=== PATIENT | female | born 1985 | race Caucasian/White ===

== ENCOUNTER 2024-10-11 23:26 | Outpatient (CLI) | payer OTHER, SELFPAY ==
[2024-10-11 23:49] VITALS: BP 118/79; PULSE 92; RESP 16; TEMP 37.2
[2024-10-12 00:05] LABS: Appearance Urine Clear (Clear); Bilirubin Urine Negative (Negative); Blood Urine Negative (Negative); Color Urine Yellow (Yellow); Glucose Urine Negative (Negative); Ketones Urine Negative (Negative); Leukocyte Esterase Urine Negative (Negative); Nitrite Urine Negative (Negative); Protein Urine Negative (Negative); Urobilinogen Urine 0.2 (0.2-1.0); pH Urine 6.5 (5.0-8.5)
[2024-10-12 00:17] LABS: Amphetamine Screen Urine Negative (Negative); Barbiturate Screen Urine Negative (Negative); Benzodiazepines Screen Urine Negative (Negative); Cannabinoid Screen Urine Negative (Negative); Cocaine Screen Urine Negative (Negative); Methadone Screen Urine Negative (Negative); Methamphetamines Screen Urine Negative (Negative); Opiate Screen Urine Negative (Negative); Oxycodone Screen Urine Negative (Negative); Phencyclidine Screen Urine Negative (Negative); Tricyclic Antidepressant Urine Negative (Negative)
[2024-10-12] MEDS: ACETAMINOPHEN 500 MG TABLET 1000 MG PO (01:02)
[2024-10-12] MEDS: hydrOXYzine pamoate 25 MG CAPSULE 100 MG PO (01:02)
--- NOTE | 2024-10-14 17:55 | PC.OBNST ---
NST Note NST Note Start: 10/11/24 23:29 Freq: ONCE Status: Discharge Protocol: Document 10/12/24 01:18 JULIANNA (Rec: 10/12/24 01:20 JULIANNA [id number]) NST Note 1 Para (# of births) 0 EDC 10/08/24 Gestational Age In Weeks & Days 40 Weeks & 4 Days Patient Presented with Complaint(s) of Contractions/cramping Reactive Yes Appropriate for Gestational Age Yes RN Dario Asher RN Date 10/12/24 Reactive Yes Appropriate for Gestational Age Yes SMOOTH Dutton Date 10/12/24 OB NST charge Yes Complete NST Note via Write Note Yes The provider's electronic signature indicates the NST is reactive/appropriate for gestational age. *Note to provider: If an addendum is required, open the patient's chart and click on the note under the Nurse/Allied Health tab.
== END 2024-10-12 01:20 | disposition home or self-care (01) ==
LOC: OB OUT 23:26 → OB 23:26
PROVIDERS: PCP Family Medicine; Visit Provider Family Medicine
DX: O47.1 False labor at or after 37 completed weeks of gestation (principal); Z3A.40 40 weeks gestation of pregnancy
CPT/HCPCS: 59025; 80306; 81003; G0463; A9270

== ENCOUNTER 2024-10-12 06:45 | Inpatient (IN) | payer OTHER, SELFPAY ==
[2024-10-12] VITALS (112 sets, daily range): BP systolic 77–127; BP diastolic 40–69; PULSE 74–116; RESP 16–18; TEMP 36.9–37.3; O2SAT 92–98; BMI 37.1
[2024-10-12 06:55] LABS: Amnisure Rom* Negative
[2024-10-12 07:07] LABS: Basophils Percent Auto 0.1 % (0.0-3.0); Eosinophils Percent Auto 0.1 % (0.0-7.0); Hematocrit 36.2 % (33.0-51.0); Hemoglobin* 12.1 gm/dL (12.0-16.0); Lymphocytes Percent Auto 6.9 % (20-44); Mean Corpuscular HGB Conc 33 gm/dL (32-36); Mean Corpuscular Hemoglobin 29 pg (26-34); Mean Corpuscular Volume 86 fL (80-100); Monocytes Percent Auto 3.9 % (0.0-11.0); Platelet Count* 238 K/uL (140-440); Red Blood Count 4.21 m/uL (4.00-5.20); White Blood Count* 14.69 K/uL (4.50-11.00)
[2024-10-12 07:11] LABS: Slide Review Reflex No
[2024-10-12] MEDS: LACTATED RINGERS 1000 ML 1,000 ML 900 ML IV ×2 (08:02→09:56)
[2024-10-12] MEDS: BUPIVACAINE 0.25% PF 10 ML 10 ML ML EPIDURAL (09:02)
[2024-10-12] MEDS: ROPIVACAINE 0.2% 100 ml 100 ML 12 MG EPIDURAL ×2 (09:02→18:45)
[2024-10-12] MEDS: PHENYLEPHRINE 100 MCG/ML SYRINGE IVP ×5 (09:55→15:05)
[2024-10-12] MEDS: ePHEDrine sulfate 5 MG/ML inj 10 MG IVP ×4 (09:59→13:11)
--- NOTE | 2024-10-12 10:01 | P.ANBPRC_ITS ---
PFSH PFSH Social History What is your current living situation?: I presently have a place to live Problems where you live: no known problems In the past 12 months, utilities in danger of being shut off: no In past 12 months, lack of transportation kept you from medical appts, meetings, work, or getting things needed for daily living: no In the past 12 mos, have been you worried that your food would run out before you had money to buy more?: never true In the past 12 mos, the food you bought just didn't last and you didn't have money to buy more?: never true Smoking Status: Former smoker How often does anyone, including family, friends and others, physically hurt you : never How often does anyone, including family, friends and others, insult or talk down to you: never How often does anyone, including family, friends and others, threaten you with harm: never How often does anyone, including family, friends and others, scream or curse at you: never Meds Home Medications and Allergies Home Medications ?Medication ?Instructions ?Recorded ?Confirmed ?Type buprenorphine 2 mg-naloxone 0.5 mg 1 film buccal DAILY 10/11/24 10/12/24 History sublingual film (Suboxone) escitalopram oxalate 20 mg tablet 20 mg PO DAILY 10/11/24 10/12/24 History (Lexapro) vits no.130-ferrous fum 1 tab PO DAILY 10/11/24 10/12/24 History 27 mg iron-folic acid 800 mcg tablet ( Vitamin) Allergies Allergy/AdvReac Type Severity Reaction Status Date / Time No Known Drug Allergies Allergy Verified 10/12/24 06:26 Results Labs Labs: Laboratory Results - last 24 hr 10/12/24 10/12/24 06:30 06:58 WBC 14.69 H RBC 4.21 Hgb 12.1 Hct 36.2 MCV 86 MCH 29 MCHC 33 RDW Coeff of Dennis 14.0 Plt Count 238 Neut % (Auto) 88.0 H Lymph % (Auto) 6.9 L [place] % (Auto) 3.9 Eos % (Auto) 0.1 Baso % (Auto) 0.1 Neut # (Auto) 12.90 H Lymph # (Auto) 1.00 [place] # (Auto) 0.60 Eos # (Auto) 0.00 Baso # (Auto) 0.00 Abs Immat Gran (auto) 0.10 Imm/Tot Granulo (auto) 1.0 Membrane Rupture Negative Blood Type A Positive Antibody Screen NEGATIVE Vital Signs Vital Signs: Last Vital Signs Temp 99.2 F 10/12/24 08:26 Pulse 74 10/12/24 09:58 Resp 18 10/12/24 08:26 BP 86/52 L 10/12/24 09:58 Pulse Ox 98 10/12/24 08:56 Weight: 104.326 kg Height: 167.64 cm Anesthesia Procedures Epidural Insertion Patient Location: OB Start Time: :00 Stop Time: 09:45 Start Date: 10/12/24 Stop Date: 10/12/24 Reason for Block: procedure for pain Patient Position: sitting Performed By: Robinson Goodman Preanesthetic Checklist: IV checked, risks and benefits discussed, surgical c onsent, monitors and equipment checked, pre-op evaluation, timeout performed and anesthesia consent Prep: chlorhexidine gluconate Monitoring: blood pressure monitoring, continuous pulse oximetry and heart rate Approach: midline Vertebral Space: lumbar (1-5) Epidural Technique: BENNY saline Needle Type: Tuohy needle Injection Technique: continuous catheter Needle gauge: 17 Needle Length (cm): 10 cm Needle Insertion Depth (cm): 6 Catheter Gauge: 19 Catheter Type: multi-orifice Catheter at skin depth (cm): 12 Test Dose Result: negative and lidocaine 1.5% with epinephrine 1 to 200,000
--- NOTE | 2024-10-12 12:41 | PM.OBHPLI ---
OB - H&P: HPI Labor/Induction History of Present Illness Time Seen by Provider: 12:41 Date Seen: 10/12/24 Chief Complaint: The patient is a 38 year old 1 para 0 at 40+4 weeks gestation by LMP, who presents with active labor. Chief complaint: Maternity : 1 Para: 0 Narrative: Sheba Ravi is a 38 year old female at 40+4 weeks by LMP c/w 9 week US. 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 Her drug use is remote, sober since 2019. After discussions with PCP, addiction medicine provider, and M, she elected to taper and discontinue suboxone prior to delivery. Last dose (0.5 mg) was 09/20. Patient denies and there is no clinical concern for elicit drug use during . She had MFM and cardiology co-consult for hx of SVT and endocarditis. She had normal EKG and echocardiogram, cleared to deliver in [place]. Presented with regular painful uterine contractions starting evening of 10/11. She was evaluated overnight; discharged home with no cervical change. 4/60/-2 on admission. FHT category I. Thought she may have had SROM, but amnisure was negative. She requested epidural, and this was placed at 0900. Since placement, patient has been intermittently hypotensive, and required multiple doses of phenylephrine. Episodes tend to occur when patient is on her back. FHT with intermittent mild variable decelerations and two deeper prolonged decelerations, both coinciding with cervical checks in supine position. Cervix most recently 5/90/-1 with bulging bag at 1213. Subsequent AROM for bloody fluid. Shortly thereafter, patient noted feeling woozy and nauseous. BP 77/40 and deep deceleration to the 80s lasting 4 minutes. Recovered with repositioning to left side, phenylephrine, and IVF bolus. FSE placed. No cord palpated with cervical check. 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 Labs Blood type: A (+) positive Rubella: immune RPR/VDLR: nonreactive GBS status: negative HBsAG: negative Narrative: HIV - Hep C - GC/chlam - GCT 122 Review of Systems Status of ROS: Reports: 10 or more systems reviewed and unremarkable except as noted in History and below Meds Home Medications and Allergies Home Medications ?Medication ?Instructions ?Recorded ?Confirmed ?Type buprenorphine 2 mg-naloxone 0.5 mg 1 film buccal DAILY 10/11/24 10/12/24 History sublingual film (Suboxone) escitalopram oxalate 20 mg tablet 20 mg PO DAILY 10/11/24 10/12/24 History (Lexapro) vits no.130-ferrous fum 1 tab PO DAILY 10/11/24 10/12/24 History 27 mg iron-folic acid 800 mcg tablet ( Vitamin) Allergies Allergy/AdvReac Type Severity Reaction Status Date / Time No Known Drug Allergies Allergy Verified 10/12/24 06:26 OB - H&P: Exam Physical Exam: Vital signs: Temp Pulse Resp BP Pulse Ox 98.6 F 92 16 90/49 L 96 10/12/24 12:35 10/12/24 12:35 10/12/24 12:35 10/12/24 12:35 10/12/24 12:38 Narrative: General appearance: Well-appearing adult female. Alert, oriented and appropriate. Lying on side in hospital bed. HEENT: EOMI, no conjunctival injection or discharge. MMM. Neck: Supple. CV: RRR, no rubs, murmurs or extra heart sounds. Pulm: CTAB, no wheezes, rales or rhonchi. Abdomen: Gravid MSK: Moving all extremities. Ext: Warm and well-perfused. No LE edema. Skin: No rashes appreciated over exposed skin. Neuro: Grossly normal strength and sensation. No focal deficits. Psych: Normal affect. OB - Results Labs Labs: Short CBC 10/12/24 Range/Units 06:58 WBC 14.69 H (4.50-11.00) K/uL Hgb 12.1 (12.0-16.0) gm/dL Hct 36.2 (33.0-51.0) % Plt Count 238 (140-440) K/uL OB - Problem Based A/P Additional Plan (1) Term : Problem details: , admitted 40+4 weeks in active labor. Epidural in place. AROM for bloody fluid. Status: Acute Plan: - FHT currently category II with occasional mild variable decelerations - FSE in place - Per anesthesia, epidural stopped, coming to bedside. Phenylephrine as needed. - Continue to closely monitor maternal BP and status - GBS negative - Anticipate vaginal delivery (2) complicated by Suboxone maintenance, antepartum: Problem details: Per patient preference, suboxone tapered and stopped. Last dose 09/20. Do not anticipate abstinence syndrome Status: Acute (3) S/P ablation operation for arrhythmia: Problem details: Normal EKG. Per cardiology and MFM at [facility], no special care Status: Acute (4) History of endocarditis: Problem details: Normal echocardiogram. Per cardiology and MFM at [facility], no special care Status: Acute
[2024-10-12] MEDS: LACTATED RINGERS 1000 ML 1,000 ML 125 ML IV ×2 (13:13→22:30)
--- NOTE | 2024-10-12 16:54 | PM.OBPNL ---
Subjective Time Seen by Provider: 16:55 Date Seen: 10/12/24 Narrative: Patient feeling a little more uncomfortable after holding epidural d/t hypotension. Rating pain 4/10. Anesthesia has been in to evaluate. Epidural restarted and patient also has the ability to bolus. BPs have been more stable with holding the epidural. Cervix 5/90/0 on recheck. FHT category II with occasional variable decelerations. Objective Vital Signs: Last Vital Signs Temp 99 F 10/12/24 16:39 Pulse 95 10/12/24 16:47 Resp 16 10/12/24 16:39 BP 93/52 L 10/12/24 16:47 Pulse Ox 97 10/12/24 13:33 Pelvic Exam Dilation (cm): 5 Effacement (%): 90 Station: 0 Contractions Monitor mode: External Contraction Frequency: Q2-3 mins Assessment Assessment: active labor Station: 0 Amniotic Membrane Status: AROM Status: Category ll Heart Rate Baseline: 155 Group Home Variability: Moderate (6-25) Monitor Accelerations: Present Monitor Decelerations: Variable Plan Plan: - Minimal cervical change since 1200 - Initiate IV pitocin. Titrate based on contraction pattern and MVUs - IUPC placed - Continue to monitor status closely - Continue to monitor blood pressure; hypotension currently stable, improved - If no significant cervical change with adequate IVUs, will involve PATTERN PERFORATING MACHINE OPERATOR to consider delivery
[2024-10-12] MEDS: ACETAMINOPHEN 500 MG TABLET 1000 MG PO (17:03)
[2024-10-12] MEDS: OXYTOCIN 30 unit/500 ML in NS 30 UNIT/500 ML BAG IVPB (17:24)
[2024-10-12] MEDS: LIDOCAINE 2% (PF) 5 ML VIAL EPIDURAL ×2 (18:31→21:47)
--- NOTE | 2024-10-12 19:53 | PM.OBPNL ---
Subjective Time Seen by Provider: 19:53 Date Seen: 10/12/24 Narrative: Called to the bedside to evaluate. Pitocin was started at 1730, got to 2, then discontinued at 1851 d/t recurrent decelerations and marked variability. OUTBOUND TELEMARKETING REPRESENTATIVE also rebolused epidural, patient now comfortable. Objective Vital Signs: Last Vital Signs Temp 99.2 F 10/12/24 18:37 Pulse 86 10/12/24 19:50 Resp 16 10/12/24 18:37 BP 112/68 10/12/24 19:50 Pulse Ox 97 10/12/24 13:33 Pelvic Exam Dilation (cm): 6.5 Effacement (%): 90 Station: 0 Contractions Monitor mode: External Contraction Frequency: q2 mins Contraction pattern: Regular Pitocin Rate (mU/min): 0 Assessment Assessment: active labor Station: 0 Amniotic Membrane Status: AROM Status: Category ll Heart Rate Baseline: 150 Detention Variability: Moderate (6-25) Monitor Accelerations: Present Monitor Decelerations: None Tracing Comments: Improved with pitocin off Plan Plan: - Made cervical change since the last check. However, intolerance of pitocin, even at a low rate. FHT now category I off pitocin. Current MVUs <200. Plan to recheck cervix in 1 hour. Will consider trial of restarting pitocin. If recurrence of recurrent decelerations, would recommend moving to delivery by section. Discussed with patient and she is agreeable. Dr. Lola pringle.
[2024-10-12] MEDS: LACTATED RINGERS 1000 ML 1,000 ML 500 ML IV (19:57)
[2024-10-12] MEDS: ONDANSETRON 2 MG/ML inj 4 MG IV (21:35)
[2024-10-12] MEDS: fentaNYL 100 MCG/2 ML inj EPIDURAL (21:47)
--- NOTE | 2024-10-12 22:28 | PM.OBCN1 ---
OB - CN: HPI Date of Consult Date Seen: 10/12/24 Patient: Car Patient Consult date: 10/12/24 Requesting Physician: Johnna Ruiz MD Primary Care Provider: Melissa Resendiz MD Consult Narrative Narrative: The patient is a 38 year old at 40 weeks, 4 days gestation that was [facility] 10[facility]24 for labor. She has had a prolonged labor with intermittent episodes of non-reassuring tracings; these have been recurrent variables or late decelerations per review of strip, but have generally resolved with cessation of oxytocin. She has an epidural for pain relief. She has just been found to be dilated to a cervical lip, but this was coupled with a series of prolonged decelerations; total time before recovery appears to have been around 22 minutes, with intermittent returns to baseline of 150 during this time. Decelerations had lukasz in 70s. There was discontinuous tracing during this time. Lie, baseline is recovered to 145, but variability is now minimal. Her is otherwise complicated by/notable for: 1. AMA 2. history of opioid dependence on suboxone maintenance therapy; she opted to discontinue this in early September. 3. MDD and GENNA on escitalopram 20 mg daily 4. history of SVT s/p ablation 5. History of infectious endocarditis related to IVDU. She has been abstinent from IV drugs since 2019. She was seen by both MFM at [facility] and cardiology during this . MFM did not recommend any endocarditis prophylaxis. Past surgical history: None History History 1 Elective abortions Para 0 Spontaneous abortions Hx # Term Pregnancies Ectopic pregnancies Hx # Pregnancies Multiple births Number of Living Children 0 Labs Blood type: A (+) positive Rubella: immune RPR/VDLR: nonreactive GBS status: negative HBsAG: negative OB Labs: Lab Assessment Start: 10/12/24 06:44 Freq: ONCE Status: Active Protocol: PC.OBGBS Activity Type Activity Date Activity User E-sign Co-sign Detail Recorded Client Recorded Date Recorded By Document 10/12/24 07:07 JULIANNA [id number] 10/12/24 07:16 JULIANNA 10/12/24 07:07 Lab Assessment GBS Status negative GBS Additional Criteria None No Treatment Needed OK Are Labs Available Yes Maternal Blood Type A Maternal RH Factor Positive Evaluate Maternal Rubella Immune Status Immune Hepatitis B Surface Antigen Negative Maternal HIV Status Negative Maternal Syphillis (RPR) Status Negative PFSH PFSH Social History What is your current living situation?: I presently have a place to live Problems where you live: no known problems In the past 12 months, utilities in danger of being shut off: no In past 12 months, lack of transportation kept you from medical appts, meetings, work, or getting things needed for daily living: no In the past 12 mos, have been you worried that your food would run out before you had money to buy more?: never true In the past 12 mos, the food you bought just didn't last and you didn't have money to buy more?: never true Smoking Status: Former smoker How often does anyone, including family, friends and others, physically hurt you: never How often does anyone, including family, friends and others, insult or talk down to you: never How often does anyone, including family, friends and others, threaten you with harm: never How often does anyone, including family, friends and others, scream or curse at you: never Meds Home Medications and Allergies Home Medications ?Medication ?Instructions ?Recorded ?Confirmed ?Type buprenorphine 2 mg-naloxone 0.5 mg 1 film buccal DAILY 10/11/24 10/12/24 History sublingual film (Suboxone) escitalopram oxalate 20 mg tablet 20 mg PO DAILY 10/11/24 10/12/24 History (Lexapro) vits no.130-ferrous fum 1 tab PO DAILY 10/11/24 10/12/24 History 27 mg iron-folic acid 800 mcg tablet ( Vitamin) Allergies Allergy/AdvReac Type Severity Reaction Status Date / Time No Known Drug Allergies Allergy Verified 10/12/24 06:26 OB - H&P: Exam Physical Exam: Vital signs: Temp Pulse Resp BP Pulse Ox 99.2 F 116 H 16 102/50 L 94 10/12/24 18:37 10/12/24 22:19 10/12/24 18:37 10/12/24 22:19 10/12/24 22:11 Narrative: Gen - currently on hands and knees in bed, accompanied by family OB - Results Labs Labs: Short CBC 10/12/24 Range/Units 06:58 WBC 14.69 H (4.50-11.00) K/uL Hgb 12.1 (12.0-16.0) gm/dL Hct 36.2 (33.0-51.0) % Plt Count 238 (140-440) K/uL OB - CN: A/P Assessment and Plan (1) Term : Problem details: , admitted 40+4 weeks in active labor. Epidural in place. AROM for bloody fluid. Status: Acute (2) complicated by Suboxone maintenance, antepartum: Problem details: Per patient preference, suboxone tapered and stopped. Last dose 09/20. Do not anticipate abstinence syndrome Status: Acute (3) S/P ablation operation for arrhythmia: Problem details: Normal EKG. Per cardiology and MFM at [facility], no special care Status: Acute (4) History of endocarditis: Problem details: Normal echocardiogram. Per cardiology and MFM at [facility], no special care Status: Acute Plan Given the length of the most recent decelerations and minimal variability, I now recommend for nonreassuring status. We discussed risks of procedure, including bleeding/hemorrhage, risk of transfusion, infection, uterine scarring, and impact on future pregnancies. Consent form was reviewed with and signed by patient. Cefazolin 2 g and azithromycin 500 mg for prophylaxis against infection. This will also serve for endocarditis prophylaxis.
[2024-10-12] MEDS: AZITHROMYCIN 500 MG in 0.9 % SODIUM CHLORIDE 250 ml 250 ML 255 MG IVPB (22:34)
--- NOTE | 2024-10-12 22:44 | P.OBPN_ITS ---
Subjective Time Seen by Provider: 22:46 Date Seen: 10/12/24 Narrative: Progressed to 8/90/+1 on cervical recheck. FHT category I. Resumed pitocin. Prolonged deceleration occurred at 2200. Cervical check posterior rim. Multiple attempts at repositioning. Pitocin stopped. Resolved only with hands and knees positioning. Objective Vital Signs: Last Vital Signs Temp 99.2 F 10/12/24 18:37 Pulse 101 H 10/12/24 22:34 Resp 16 10/12/24 18:37 BP 96/53 L 10/12/24 22:34 Pulse Ox 94 10/12/24 22:11 Pelvic Exam Dilation (cm): 9.5 Effacement (%): 90 Station: +1 Assessment Station: +1 Amniotic Membrane Status: AROM Status: Category ll Heart Rate Baseline: 150 Senior Care Variability: Minimal (3-5) Monitor Accelerations: Absent Monitor Decelerations: None Plan Plan: - Consulted OB director [employer] [facility], Dr. Davila, for delivery d/t non-reassuring status. See her note for further details.
[2024-10-12] MEDS: miSOPROStoL 800 MCG/4 TABLET PR (23:22)
[2024-10-13] VITALS (20 sets, daily range): BP systolic 90–123; BP diastolic 54–84; PULSE 77–129; RESP 12–18; TEMP 36.7–38.2; O2SAT 95–99
--- NOTE | 2024-10-13 00:12 | P.OBPRC_ITS ---
Procedure Date of procedure: 10/13/24 Pre-op diagnosis: 40 weeks, 4 days gestation Nonreassuring status during spontaneous labor Post-op diagnosis: same (Uterine atony) Procedure Done: Global Will [facility] bill your pro fee for this procedure?: Yes Blood Loss Measurement Type: QBL (4963) Bakri Used: No IV fluids (mL): 1,200 Urine Output Comment: blood tinged urine noted prior to initiation of Surgeon: Mar Davila MD Biofuels Operations Manager: Kerri Ovalle CRNA Anesthesia Type: Epidural Findings: 1. Female , thick meconium-stained fluid, cephalic 0P presentation, Apgars of 3, 7, and 7, weight pending at the time of this dictation 2. 2 cm subserosal fibroid on the posterior aspect of the uterus. Otherwise normal appearance to uterus, bilateral tubes and ovaries. Procedure Name: Primary low-transverse section with placement of B Rivera suture Procedure Description: PROCEDURE IN DETAIL: Patient was taken to the operating room with IV running. She received cefazolin in preoperative prophylaxis. Epidural anesthesia had previously been administered. Ingram catheter was previously inserted. heart rate at arrival to the OR was 140 beats per minute. She was prepped and draped in the usual sterile fashion. Anesthesia was tested and found to be adequate. A low-transverse skin incision was made with a scalpel and carried through to the underlying layer of fascia with the scalpel. The subcutaneous fat was dissected off the underlying fascia bluntly. The fascia was nicked in the midline with a scalpel, and this incision was extended laterally with scissors. The rectus muscles were in the midline. Peritoneum was identified and entered bluntly. Bovie was used to widen this opening. Ferdinand O retractor was inserted and tightened down, providing excellent visualization of the lower uterine segment. The bladder was noted to be quite distended, in the catheter was adjusted to promote drainage. The bladder reflection was found to be advanced along the lower uterine segment. A bladder flap was created with a combination of sharp and blunt dissection. Low-transverse uterine incision was made with a scalpel. Incision was widened bluntly. The infant's head was grasped through the hysterotomy and delivered with the help of fundal pressure. The remainder of the body delivered without incident. Cord was clamped and cut after 30 seconds. was handed off to attending nurses. The placenta was delivered manually after gentle traction on the cord did not result in delivery of placenta. There were trailing membranes that were then removed with a combination of dry laparotomy pads and ring forceps. The uterus was cleaned of all clots and debris with the dry lap pad. The hysterotomy was reapproximated with 0 Vicryl in a running, locked fashion. Second layer of the same suture was used in imbricating fashion to obtain hemostasis. Uterine atony was noted throughout this time. Uterus was exteriorized several times during the procedure. Uterine massage and the multiple uterotonics did not ultimately suffice to improve the tone. However, bleeding did stop after the imbrication of the hysterotomy. Of B Rivera suture was placed using #1 Chromic suture. The arms of this suture were adjusted medially on the top of the uterus to move them away from the adnexa and the proximal portions of the fallopian tubes. This stitch was able to bring the fundal Height to 2 cm below the umbilicus. The adnexa were examined and noted to be normal in appearance. The cul-de-sac was copiously irrigated given the presence of abundant meconium-stained fluid. Uterus was returned to the abdomen. The gutters were cleansed with dampened laparotomy sponge, removing any further clots and debris. The Ferdinand O retractor was removed. The hysterotomy was reexamined and found to be hemostatic. The peritoneum was reapproximated with 2 0 Vicryl in a running fashion. The rectus muscles were examined and found to be hemostatic. The fascia was reapproximated with 0 Vicryl in a running fashion. Subcutaneous fat was irrigated and Bovie used on oozing vessels. The subcutaneous fat was reapproximated with 2 0 plain gut suture in an interrupted fashion. The skin was closed with a subcuticular stitch of 4-0 Monocryl. Surgical glue was applied above this. Tap block was performed by Anesthesia. After this, examination of pad beneath patient did not show a large amount of bleeding. Fundal massage did not show an abnormal amount of lochia. Patient tolerated procedure with difficulty and was taken to recovery area in stable condition. Complications: Uterine atony, leading to intraoperative hemorrhage of 1071 mL, treated with IV oxytocin, 2 doses of intramuscular Hemabate, 2 doses of intramuscular Methergine, 800 mcg of rectal misoprostol, 1 g of IV tranexamic acid, and a B Rivera suture. Infant required PPV and CPAP Pathology: specimen obtained, sent to pathology (placenta) Surgery Debrief Performed: Yes Surgery Debrief Comment: Postoperative debrief was verbalized with OR staff, including a verification of pathology specimens to be sent as described above. Condition: stable Disposition: floor
--- NOTE | 2024-10-13 00:35 | P.ANES_ITS ---
Anesthesia Charges Start Date/Time Anesthesia Start Date: 10/12/24 Anesthesia Start Time: 22:50 Stop Date/Time Anesthesia Stop Date: 10/13/24 Anesthesia Stop Time: 00:31 Summary Emergency: INVESTMENT REPRESENTATIVE
--- NOTE | 2024-10-13 00:36 | P.NB_ITS ---
Nerve Block Nerve Block Time Seen by Provider: 00:25 Date Seen: 10/13/24 Type of block requested by surgeon for post-operative analgesia: TAP Side: bilateral Time out performed: Yes Verification of patient name: Yes Verification of date of : Yes Site marking: site marked Name of person performing procedure: Robinson Goodman Continuous monitoring Was continuous monitoring of O2 sat, B/P, nuclear monitoring technician, recorded every 15 minutes?: Yes Procedure Checklist: sterile prep, needles and gloves Ultrasound guided. Images saved: Yes Medications given in 5ml increments after negative aspiration: Marcaine %: 0.25 mL: 30 Needle gauge: 20 and Exparel mL: 10 Needle gauge: 20 Patient tolerated procedure well: Yes Additional comments: Injected in 5ml increments after negative aspiration Block Charges Block Charge (with Pro Fee): TAP Bilateral Use of Ultrasound Machine for Block: Yes- US Guidance/pain block
[2024-10-13] MEDS: ACETAMINOPHEN 500 MG TABLET 1000 MG PO ×4 (01:43→20:31)
[2024-10-13] MEDS: KETOROLAC 30 MG/ML inj IVP ×3 (02:43→14:44)
[2024-10-13] MEDS: SODIUM CHLORIDE 0.9 % (FLUSH) 10 ML SYRINGE IVF ×2 (02:44→20:32)
[2024-10-13] MEDS: MORPHINE 2 MG/ML inj IVP (04:12)
[2024-10-13] MEDS: OXYCODONE 5 MG TABLET PO ×5 (05:21→23:26)
[2024-10-13 06:02] LABS: Hemoglobin* 10.8 gm/dL (12.0-16.0)
--- NOTE | 2024-10-13 09:29 | P.OBPN_ITS ---
OB - PN:Subj Subjective Time Seen by Provider: 09:40 Date Seen: 10/13/24 Interval history: Sheba is a 38-year-old seen on postoperative day 1 from primary delivery performed for nonreassuring heart tones. Delivery was complicated by hemorrhage secondary to uterine atony, requiring multiple uterotonics and a B Rivera suture. Please see Dr. Davila's operative note for complete details. Since her surgery, vital signs have remained within normal limits. Postprocedure hemoglobin at 4:00 a.m. was 10.8 (from 12.1). Urine output has been robust, 2150mL since midnight. Her pain was initially difficult to control, now notes that it is tolerable with NSAIDs, Tylenol and oxycodone p.r.n.. Past medical history is significant for opioid use disorder with Suboxone treatment, which she weaned 37 weeks. At this time, Sheba notes her pain is well controlled. Pain is exacerbated with attempts at movement, where she has not yet been up and out of bed. She is tolerating small volume liquids and solids without nausea or vomiting. Voiding via Ingram. She has not yet passed flatus, notes she does have some sensation of rectal pressure to suggest this or BM is imminent. She has noted more vaginal bleeding after movement, no bleeding concerns per RN. She is bonding appropriately with baby Caitlin. OB - PN: Obj Exam Physical Exam: Vital signs: Temp Pulse Resp BP Pulse Ox O2 Del Method 98.2 F 77 18 107/70 95 Room Air 10/13/24 08:00 10/13/24 08:00 10/13/24 08:00 10/13/24 08:00 10/13/24 08:00 10/13/24 08:00 Narrative: General: Alert and oriented, no acute distress Psych: Appropriate mood and affect Skin: Soft, nondistended. Tender to palpation across the lower abdominal quadrants, consistent with postoperative state. No rebound or guarding. Fundus palpates at the umbilicus. Extremities: Calves are non tender, swollen or erythematous. OB - PN: Obj Data Labs Labs: Laboratory Results - last 24 hr 10/13/24 10/13/24 00:25 05:41 Hgb Cancelled 10.8 L OB - PN: A/P Delivery Assessment and Plan (1) Term : Problem details: , admitted 40+4 weeks in active labor. Epidural in place. AROM for bloody fluid. Status: Acute (2) complicated by Suboxone maintenance, antepartum: Problem details: Per patient preference, suboxone tapered and stopped. Last dose 09/20. Do not anticipate abstinence syndrome Status: Acute (3) S/P ablation operation for arrhythmia: Problem details: Normal EKG. Per cardiology and MFM at [facility], no special care Status: Acute (4) History of endocarditis: Problem details: Normal echocardiogram. Per cardiology and MFM at [facility], no special care Status: Acute Plan Sheba is a 38-year-old a seen on postoperative 1 from a primary delivery. Delivery was complicated by hemorrhage requiring multiple uterotonics and B Rivera suture. Total QBL was 1070mL. She has had normal vital signs, robust urine output and no concerning vaginal bleeding since her delivery. Pain control has been variable, but notes it is tolerable at this time. Patient does have a history of opioid use disorder where she was maintained on Suboxone until 37 weeks of . I did affirmed that of course we will optimize a multimodal pain management strategy, where we will maximize nonnarcotic pain medicines 1st. That said, opioids are indicated in the setting of acute postoperative pain where she can continue to use these as needed. We will be mindful in terms of her discharge prescription to provide adequate analgesia but also minimize potential for harm. She does have an established pain medicine provider. For today, plan to work on postoperative milestones. Most notably, she has not yet trialed ambulation. We discussed strategies to optimize pain control in doing so. Pending ambulation, plan to remove Ingram catheter. Continue gentle p.o. intake. Continue routine care. Disposition: Inpatient overnight Plan day: 1 Plan: routine care
[2024-10-13] MEDS: FERROUS SULFATE 325 MG TABLET PO (09:34)
[2024-10-13] MEDS: ESCITALOPRAM 10 MG TABLET 20 MG PO (20:31)
[2024-10-13] MEDS: IBUPROFEN 600 MG TABLET PO (20:43)
[2024-10-14 00:30] LABS: Rapid Plasma Reagin (RPR) Non Reactive (Non Reactive)
[2024-10-14] MEDS: ACETAMINOPHEN 500 MG TABLET 1000 MG PO ×4 (02:26→21:33)
[2024-10-14] MEDS: IBUPROFEN 600 MG TABLET PO ×3 (02:27→18:16)
[2024-10-14] MEDS: OXYCODONE 5 MG TABLET PO ×4 (03:33→18:16)
[2024-10-14 07:14] LABS: Hemoglobin* 9.6 gm/dL (12.0-16.0)
[2024-10-14 08:15] VITALS: BP 93/62; PULSE 75; RESP 16; TEMP 36.6; O2SAT 95
[2024-10-14] MEDS: DOCUSATE SODIUM 100 MG CAPSULE PO (08:23)
--- NOTE | 2024-10-14 10:19 | P.OBPN_ITS ---
OB - PN:Subj Subjective Date Seen: 10/14/24 Interval history: Sheba is a 38-year-old seen on postoperative day 2 from primary delivery performed for nonreassuring heart tones. Delivery was complicated by hemorrhage secondary to uterine atony, requiring multi ple uterotonics and a B Rivera suture. Please see Dr. Davila's operative note for complete details. Her post-op hemoglobin was 10.8 yesterday, then 9.6 this morning. VS are within normal limits, excellent UOP and is meeting appropriate milestones. Past medical history is significant for opioid use disorder with Suboxone treatment, which she weaned 37 weeks. Sheba notes she is feeling well this morning. Her pain control has been tolerable in general, where she is taking Tylenol, NSAIDs and oxycodone (5 mg about every 4-6 hours as needed). She has been up and out of bed, denies dizziness or lightheadedness with ambulation. Ingram catheter has been removed. Voiding spontaneously without difficulty. She is passing flatus, no bowel movement. Appetite is appropriate, denies nausea or vomiting. Lochia is small volume. Denies chest pain, dyspnea. She is bonding appropriately with baby Caitlin. OB - PN: Obj Exam Physical Exam: Vital signs: Temp Pulse Resp BP Pulse Ox O2 Del Method 97.8 F 75 16 93/62 95 Room Air 10/14/24 08:15 10/14/24 08:15 10/14/24 08:15 10/14/24 08:15 10/14/24 08:15 10/14/24 08:15 Narrative: General: Alert and oriented, no acute distress Psych: Appropriate mood and affect Abdomen: Soft, nondistended. Nontender in the upper abdomen, mild tenderness to palpation the bilateral lower quadrants consistent with postoperative state. Fundus at 1 below umbilicus. Incision is clean, dry, intact. No erythema, ecchymosis or drainage. OB - PN: Obj Data Labs Labs: Laboratory Results - last 24 hr 10/12/24 10/14/24 06:58 06:51 Hgb 9.6 L RPR Screen Non Reactive OB - PN: A/P Delivery Assessment and Plan (1) Term : Problem details: , admitted 40+4 weeks in active labor. Epidural in place. AROM for bloody fluid. Status: Acute (2) complicated by Suboxone maintenance, antepartum: Problem details: Per patient preference, suboxone tapered and stopped. Last dose 09/20. Do not anticipate abstinence syndrome Status: Acute (3) S/P ablation operation for arrhythmia: Problem details: Normal EKG. Per cardiology and MFM at [facility], no special care Status: Acute (4) History of endocarditis: Problem details: Normal echocardiogram. Per cardiology and MFM at [facility], no special care Status: Acute Plan Sheba is a 38-year-old a seen on postoperative 2 from a primary de livery, complicated by PPH of 1070mL due to atony (uterotonics, B-rivera). She has had normal vital signs, robust urine output and no concerning vaginal bleeding since her delivery. Pain control has been adequate, on a regimen of NSAIDs, Tylenol and oxycodone - where she has taken oxycodone 5 mg about every 4-6 hours. Patient does have a history of opioid use disorder where she was maintained on Suboxone until 37 weeks of . I again affirmed that of course we will optimize a multimodal pain management strategy, where we will maximize nonnarcotic pain medicines 1st. That said, opioids are indicated in the setting of acute postoperative pain where she can continue to use these as needed. We will be mindful in terms of her discharge prescription to provide adequate analgesia but also minimize potential for harm. She does have an established pain medicine provider. Vital signs have been entirely within normal limits since surgery. Her baseline blood pressure is mildly hypotensive at times. She is not tachycardic, has robust urine output and a benign abdominal exam. Postoperative hemoglobin has down trended from 10.8-9.6 this morning. Given appropriate postop milestones and vital signs, plan to only recheck hemoglobin is currently indicated as the day progresses. Plan to continue to progress her postoperative milestones. Continue current pain regimen for analgesia. Encourage p.o. intake, ambulation. Return of bowel function has been demonstrated, voiding spontaneously. Patient is interested in IBCLC visit tomorrow breast-feeding support. Disposition: Anticipate dismissal to home tomorrow. Plan day: 2
[2024-10-14 12:12] VITALS: BP 112/71; PULSE 74; RESP 16; TEMP 36.5; O2SAT 95
[2024-10-14 19:45] VITALS: BP 114/72; PULSE 90; RESP 18; TEMP 36.9; O2SAT 95
[2024-10-14] MEDS: ESCITALOPRAM 10 MG TABLET 20 MG PO (21:33)
[2024-10-15] MEDS: OXYCODONE 5 MG TABLET PO ×2 (01:09→09:55)
[2024-10-15] MEDS: IBUPROFEN 600 MG TABLET PO (01:10)
[2024-10-15 03:40] VITALS: BP 110/70; PULSE 73; RESP 18; TEMP 36.5; O2SAT 97
[2024-10-15] MEDS: ACETAMINOPHEN 500 MG TABLET 1000 MG PO (03:44)
--- NOTE | 2024-10-15 08:24 | P.DS_ITS ---
DS: Providers Provider Date Seen: 10/15/24 Date of admission: 10/12/24 06:45 Primary care physician: Melissa Resendiz MD Admitting Clinician: Johnna Ruiz MD Attending Physician on discharge: Roxana Maria CNM DS: Diagnosis Discharge Diagnosis (1) care and examination immediately after delivery: Status: Acute (2) Status post delivery: Status: Acute (3) complicated by Suboxone maintenance, antepartum: Status: Acute Problem details: Per patient preference, suboxone tapered and stopped. Last dose 09/20. Do not anticipate abstinence syndrome (4) History of endocarditis: Status: Acute Problem details: Normal echocardiogram. Per cardiology and MFM at [facility], no special care (5) Lactating mother: Status: Acute (6) History of opioid abuse: Status: Acute Problem details: 4 years sober (7) S/P ablation operation for arrhythmia: Status: Acute Problem details: Normal EKG. Per cardiology and MFM at [facility], no special care Exam Narrative: Exam Narrative: GENERAL APPEARANCE:? normal affect, alert, no distress MOOD:? appropriate CHEST:? clear to auscultation HEART:? regular rate and rhythm ABDOMEN:? soft, non-tender the uterine fundus is At Umbilicus, Midline and is appropriate for the stage of recovery. EXTREMITIES:? normal and trace edema INCISION: Healing well, no surrounding erythema, abnormal induration or discharge Const: Vital Signs, click to edit/add: Vital Signs - 24 hr 10/14/24 12:12 10/14/24 19:45 10/15/24 03:40 Temperature 97.7 F 98.5 F 97.7 F Pulse Rate [Pulse Oximeter] 74 90 73 Respiratory Rate 16 18 18 Blood Pressure [Ri ght Arm] 112/71 114/72 110/70 Pulse Oximetry 95 95 97 Oxygen Delivery Me thod Room Air Room Air Room Air Documenting provider has reviewed patient's vital signs: yes OB - DS: Summary Hospital Course Hospital Course: Sheba is a 38 y.o. G 1 P 1 who was admitted to [facility] for spontaneous onset of labor. ?She had a section for NRFHT that was complicated by PPH of 1071 secondary to uterine atony, requiring multiple uterotonics and a B hayward suture. Her hemoglobin was 9.6 yesterday morning. The patient is feeling well well. ?The pain is well controlled with current medications. She is taking Tylenol, NSAIDs and oxycodone (5 mg about every 4-6 hours as needed). She does states she plans to go home with oxycodone. Her history is complicated by opioid dependency 4 years ago and was on Suboxone until she was weaned at [address] Martinez who will make a plan for opioid use at home status post surgery. She encouraged a follow-up with her Suboxone prescriber in the near future. She does have an appointment mid October with him. She said her will help prevent her from relapse. She otherwise has no new complaints. ?She is breast feeding and reports things are going well. the patient has done well.? Vitals have been stable.? She has remained afebrile.? Has a good appetite, is tolerating a general diet. ?She is voiding without difficulty.? She is passing gas and has not had a bowel movement.? She is ambulating and denies any dizziness.? Has small amount of rubra lochia. She is not planning anything for prevention. Recommended child spacing of 18 months minimum between pregnancies. Problems: Anemia, Hx of opioid use plan: Discharge home with baby. Follow up in 2 weeks and 6 weeks. Return to primary care, family medicine provider for care per patient desire. , may see if needed Hgb 9.6. Iron supplement ordered orally every other day Peripartum Data Infant delivery method: Primary C/S; Labored Procedures: Procedures Operation Date: 10/12/24 23:00 Actual Procedure Side Surgeon p Section Mar Davila MD complications: none Infant Gender: Female Discharge Plan: Home Status at Discharge Functional status at discharge: independent ambulation Overall status at discharge: patient is progressing back to baseline Time Spent with Patient Time attestation: Total time spent providing and/or coordinating discharge services: Time spent: Less than 30 minutes Discharge Plan Discharge Disposition: Home, Self-Care Date of Admission: 10/12/24 06:45 Primary Care Provider: Melissa Resendiz I Condition: Stable Anticipated Discharge Date/Time: 10/15/24 12:00 Discharge Medications: New acetaminophen 500 mg Tablet 1,000 mg PO Q6H PRN (Reason: Pain) Qty: 0 0RF ferrous sulfate 325 mg (65 mg iron) Tablet 325 mg PO Q48H Qty: 60 0RF ibuprofen 600 mg Tablet 600 mg PO Q6H PRN (Reason: Pain) Qty: 60 0RF oxycodone 5 mg Tablet 5 mg PO Q6H PRN (Reason: Pain) 14 Days Qty: 20 0RF Continued buprenorphine-naloxone [Suboxone] 2-0.5 mg film 1 film buccal DAILY Rx Instructions: place 1 strip/tab under (each) side of tongue escitalopram oxalate [Lexapro] 20 mg tablet 20 mg PO DAILY Vitamin 27 mg iron- 800 mcg tablet 1 tab PO DAILY Discharge Orders: Discharge Order (Routine); Ordered 10/15/24 Ordered By: Roxana Maria Patient Education: OB Over the Counter Medication Information, OB /Breast Feeding Additional Instructions: Discharge instructions were reviewed with the patient including signs and symptoms of infection and home going medications Lifting Restrictions: 20 pounds for 6 weeks No not submerge incision under water X 2 weeks? Nothing vaginally for 6 weeks: no tampons or intercourse Do not drive while taking narcotic pain medication(s) Off Work or School for 8 weeks Patient has appointment with her pain physician on November 05, 2024. Advised patient to obtain an appointment sooner given her recent surgery necessitating oxycodone use for recovery. 2-week visit: incision check, discuss feeding concerns, review control options and screen for anxiety/depression. 6-week visit for an annual exam. consultation services are available to all mothers and babies for the first year after delivery.? To make an appointment, please call [phone]. Activity Level: Activity as Tolerated Discharge Diet: Regular Follow Up Appointments: [facility] [Provider Group] Forms: [employer] Info Instructions
[2024-10-15 09:46] VITALS: BP 114/69; PULSE 79; RESP 18; TEMP 37.1; O2SAT 96
[2024-10-15] MEDS: FERROUS SULFATE 325 MG TABLET PO (09:55)
[2024-10-15] MEDS: DOCUSATE SODIUM 100 MG CAPSULE PO (09:55)
--- OUTSIDE RECORDS SUMMARY | 2025-08-19 13:17 | XMS_ITS | Clinical Summary ---
Author Organization [facility] Address [address] [place] [address] Care Team Providers Care Pullman Conductor Name Role Phone Asim Frey MD Unavailable Blanquita Sidhu DO Primary Care Provider [phone] Allergies No known active allergies Medications * This document contains information received from the source organization and may not represent a complete record from that organization. famotidine (PEPCID) 20 mg tabletIndication s:Gastroesophage al reflux disease, unspecified whether esophagitis present Take 1 Tablet (20 mg) by mouth two times daily. 180 Tablet 3 4 Active multivitamin () 27 mg iron- 800 mcg folicIndications :Anxiety TAKE ONE TABLET BY MOUTH ONE TIME DAILY 100 Tablet 3 4 Active triamcinolone (ARISTOCORT; KENALOG) 0.1 % creamIndications :Pruritus of in second trimester (HC) Apply topically to affected area(s) three times daily. 40 g 4 Active escitalopram oxalate (LEXAPRO) 20 mg tabletIndication s:Depression, unspecified depression type Take 1.5 Tablets (30 mg) by mouth once daily. 90 day supply 135 Tablet 5 Active buprenorphine-na loxone (Suboxone) 4-1 mg sublingual filmIndications: Opioid use disorder, severe, in sustained remission (HC) Take one film in the afternoon and one film at night. Place film under the tongue until completely dissolved. Do not chew or swallow film. For a total of 16 mg in 24 hrs. 180 Film 5 Active buprenorphine-na loxone (Suboxone) 8-2 mg sublingual filmIndications: Opioid use disorder, severe, in sustained remission (HC) Place 1 Film under the tongue once daily. Place film under the tongue until completely dissolved. Do not chew or swallow film. For a total of 16 mg in 24 hrs 90 Each 5 Active buPROPion (Wellbutrin XL) 150 mg Extended-Release tabletIndication s:Depression, unspecified depression type Take 1 Tablet (150 mg) by mouth once daily. 90 Tablet 5 Active buprenorphine-na loxone (Suboxone) 4-1 mg sublingual filmIndications: Opioid use disorder, severe, in sustained remission (HC) Take one film in the afternoon and one film at night. Place film under the tongue until completely dissolved. Do not chew or swallow film. For a total of 16 mg in 24 hrs. 180 Film 5 025 Discontin ued(*Medi cation adjustmen t) buprenorphine-na loxone (Suboxone) 8-2 mg sublingual filmIndications: Opioid use disorder, severe, in sustained remission (HC) Place 1 Film under the tongue once daily. Place film under the tongue until completely dissolved. Do not chew or swallow film. For a total of 16 mg in 24 hrs 90 Each 5 025 Discontin ued(*Medi cation adjustmen t) buPROPion (Wellbutrin XL) 300 mg Extended-Release tabletIndication s:Depression, unspecified depression type Take 1 Tablet (300 mg) by mouth once daily. 90 Tablet 5 025 Discontin ued(*Medi cation adjustmen t) buPROPion (Wellbutrin XL) 150 mg Extended-Release tabletIndication s:Depression, unspecified depression type Take 1 Tablet (150 mg) by mouth once daily. 30 Tablet 1 5 025 Discontin ued(Reord er (E-cancel not sent)) Active Problems Problem Noted Date Diagnosed Date AMA (advanced maternal age) primigravida 35+, second trimester 06/12/2024 Elderly primigravida, antepartum 04/09/2024 Paroxysmal SVT (supraventricular tachycardia) [facility] Supervision of high-risk 4 Overview (07/17/2024): Sheba Ravi : 1985 REFERRING PROVIDER/CLINIC LOCATION/FAX #: Dr. Melissa Yoon [facility] Primary provider approves scheduling of recommended ultrasounds/testing: Yes [facility] ULTRASOUND/TESTING PATIENT [facility] CONSULT ON 04/09/24 Support person name: Foster ULTRASOUND TYPE: REASON FOR VISIT: Post ECHO follow up. hx endocarditis and SVT s/p ablation, AMA, hx opioid use d/o on suboxone NEXT VISIT ALERTS: Final EDUARDO by LMP LMP Date: Patient's last menstrual period was 01/02/2024 (exact date). EDUARDO: 10/08/24 Early US: Date: 03/06/24 GA: 9w 2d EDUARDO: 10/07/2024 PrePregnancy Weight: 178 lbs Height: 5ft 6in BMI: 28.83 PLANS & FUTURE APPOINTMENTS: ULTRASOUND/GROWTH PLAN: q 4-6 weeks - Growth: Next TESTING PLAN: - Testing: Through DELIVERY PLAN: - Scheduled delivery: - Preferred delivery location: ??? PRIMARY DIAGNOSIS: 38 y.o. Estimated Date of Delivery: 10/08/24 MATERNAL AMA Hx opioid use disorder; sober since 2019; Suboxone Anxiety/Depression/ADD History of endocarditis r/t IV drug use - 07/16 ECHO shows previously described 4 x 12 mm lesion on tricuspid valve no longer evident Paroxysmal SVT- Ablation 2021 Had palpitations in early but they have resolved PREVIOUS ULTRASOUNDS: 06/12/24 23w1d EFW 639 grams, percentile: 73. 05/15/24 19w1d EFW 348 grams, percentile: 96. ECHO: SPECIALISTS/CONSULTS: Include: Specialty MD Clinic Name Phone# [place] and ADDED TO PATIENT CARE TEAM Psychiatry, Dr. Alyce Greene [place] 03/21/[address] Domingo [place], [place] 02/16/2022- no further follow up needed unless symptoms return GENETICS: NIPT: Low Risk CARE COORDINATION: [facility] Maternal Care Coordination Team: Arelis Odonnell RN, Terrie Clemons RN, Odalis Hi RNC, & Nichelle Harrell RN [phone] PERTINENT LABS: Labs reviewed? Yes Normal? Yes, UC +, treated and ASUNCION neg Blood type: A Rh Positive Antibody screen: Negative PERTINENT MEDS: Escitalopram 20 mg Suboxone 4mg QD PROCEDURES: ECHO 07/16/24 . Normal left ventricular chamber size and systolic function; visually estimated ejection fraction 55-60%. 2. No focal regional wall motion abnormalities; normal left ventricular diastolic function. 3. Normal right ventricular chamber size and systolic function; minimum estimated right ventricular systolic pressure 22 mmHg. 4. Upper limit of normal/borderline increased left atrial chamber size. 5. No significant valvular disease. Compared to previous study dated 08/31/2021, previously described 4 x 12 mm lesion tricuspid valve not evident on current exam. Estimated EF: 55-60% EKG 02/05/24 - normal sinus rhythm ECHO 2020 1. Normal left ventricular chamber size. Calculated left ventricular ejection fraction (modified Leon technique) is 57 %. 2. Normal right ventricular chamber size. Normal right ventricular systolic function. 3. There is a vegetation seen on the tricuspid valve measuring 4 x 12 mm (this was noted on the previous TTE from 11/04/2020 and appears less prominent on the present study). Mild tricuspid valve regurgitation. Estimated EF: 55% PLAN OF CARE: 06/12 per ML: -Return to primary OB provider for continued care. -No alterations in the delivery plan are necessary. -No medication changes are indicated. -No surveillance suggested. -Recommend serial growth at 30 and 34 weeks -The patient was directed to schedule with OB provider as discussed at their visit today. 02/16/2024 Overview (09/17/2024): Problem List: 1) Hx of opioid and methamphetamine use disorder - none since 2019 Follows with addiction medicine Suboxone treatment tapered during per patient preference - PRN use only (0.5 mg several times weekly) as of 09/17/24 EFW 64th percentile at 34 weeks Do not anticipate complications at this low dose DO NOT PLAN UDS OR URINE OR MECONIUM TESTING AT THE TIME OF DELIVERY 2) Hx of infectious endocarditis (2/2 IVDU) and SVT s/p ablation - MPP consult, see below for recommendations: History of infectious endocarditis: Recent echo was reviewed with the patient which reveals normal tricuspid valve function without evidence of chronic changes related to past infective endocarditis. Overall cardiac function is normal without evidence of heart failure. Rhythm was normal during exam. EKG was also recently normal. Given normal cardiac function this is unlikely to complicate the remainder of her or delivery. No great Allen appears appropriate. History of SVT status post ablation: She appears to have had a normal cardiac rhythm since her ablation procedure and feels well. If she remains asymptomatic no cardiac monitoring is necessary during labor. Estimated Date of Delivery: 10/08/24 Patient's last menstrual period was 01/02/2024 (exact date). Hx of drug abuse- none since 2019 On Suboxone US @ 19w1 EFW 348g, 96th percentile Anterior placenta- no previa RECOMMENDATIONS: - Return to primary provider for continued care. - A follow up ultrasound is recommended in 4 weeks to assess remaining anatomy and growth (will schedule with [facility] assistant front end manager on way out) - Growth ultrasounds q 4-6 weeks recommended with suboxone use - Patient currently on a suboxone taper with psychiatrist - Scheduled for maternal echo and MOMS consult with [facility] at 28 weeks given history of SVT s/p ablation, endocarditis GBS: 28wk labs: Last Tdap: 2011 Last Flu vaccine: 2020 OB Labs: ABORH Date Value Ref Range Status 02/15/2024 A Rh Positive Final ANTIBODY SCREEN Date Value Ref Range Status 02/15/2024 Negative Negative Final TREPONEMA PALLIDUM Date Value Ref Range Status 02/15/2024 Non-Reactive Non-Reactive Final RUBELLA IGG ANTIBODY Date Value Ref Range Status 02/15/2024 3.29 >=1.00 Index Final INTERPRETATION Date Value Ref Range Status 02/15/2024 Positive Final Comment: Presence of detectable IgG antibodies. A positive result generally indicates exposure to the virus or previous vaccination, but is not an indication of active infection or stage of disease. 02/15/2024 Positive Final Comment: Presence of detectable IgG antibodies. A positive result generally indicates exposure to the virus or previous vaccination, but is not an indication of active infection or stage of disease. HBSAG Date Value Ref Range Status 02/15/2024 Nonreactive Nonreactive Final HEPATITIS C ANTIBODY Date Value Ref Range Status 02/15/2024 Non-Reactive Non-Reactive Final Comment: Please note, per www.CDC.gov: If a patient is known to be at high risk of HCV infection, or is symptomatic, and the physician's suspicion of HCV infection is high, HCV RNA testing is often employed and is of diagnostic value, even after an initial negative anti-HCV test result. HIV-1/HIV-2 SCREEN Date Value Ref Range Status 02/15/2024 Non-Reactive Non-Reactive Final Comment: HIV-1 p24 and HIV-1/HIV-2 Ab Not Detected. VARICELLA ZOSTER IGG ANTIBODY Date Value Ref Range Status 02/15/2024 169.5 >=165.0 INDEX Final HEMOGLOBIN Date Value Ref Range Status 02/15/2024 13.2 12.0 - 16.0 g/dL Final PLATELET COUNT Date Value Ref Range Status 02/15/2024 245 140 - 440 thou/cu mm Final CHLAMYDIA PROBE Date Value Ref Range Status 02/15/2024 Negative Final N GONORRHOEAE PROBE Date Value Ref Range Status 02/15/2024 Negative Final No Known Allergies OB History Para Term AB Living 1 0 0 0 0 0 SAB IAB Ectopic Multiple Live Births 0 0 0 0 0 # Outcome Date GA Lbr Arsalan/2nd Weight Sex Delivery Anes PTL Lv 1 Current Past Medical History: . Date ADD (attention deficit disorder) Anxiety Depression Hx of cardiac disorder SVT- ablation 2021 Personal history of contraception, presenting hazards to health Oral Contraceptives Varicella in childhood Past Surgical History: . Laterality Date AV NODE ABLATION 11/12/2021 WISDOM TEETH EXTRACTION 2005 Problems (from 02/15/24 to present) No problems associated with this episode. 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 This will not affect patient care or billing. This comment can be deleted. Resolved Problems Problem Noted Date Diagnosed Date Resolved Date Suboxone maintenance treatme nt complicating , antepartum, second trimester 06/12/2024 10/26/2024 Opioid use disorder, severe, dependence 10/21/2020 10/26/2024 Methamphetamine use disorder , severe, dependence 10/21/2020 10/26/2024 Encounters Date Type Department Care Team Description 08/09/2025 Telephone [facility] [place] [facility] [place] [address] [place] [address] Asim Frey MD Prior Authorization (buPROPion (Wellbutrin XL) 150 mg Extended-Release tablet-PA NOT NEEDED) 08/08/2025 Refill [facility] [place] [place] [address] [place] [address] Asim Frey MD Refill Request (Refill: Bupropion HCL XL 150mg) 08/06/2025 10:30 AM CDT Telemedicine [facility] [place] [place] [address] [place] [address] Asim Frey MD Medication Management; Telehealth; Addiction 08/05/2025 Travel from Last 3 Months Immunizations Immunization Administration Dates Next Due COVID-19 vaccine (VoiceBunnyBio NTech 30mcg/0.3mL) PF, MDV 01/23/2021,01/02/2021 HPV 9 (Gardasil 9) 12/21/2013,11/07/2009 Hepatitis B (Peds) 03/21/2001,07/25/2000, 000 Human Papilloma Virus Vaccine 11/07/2009 INFLUENZA, IIV3 PF (AGE >= 6 MO) 07/16/2024 Influenza, IIV4 08/04/2021,10/14/2020,07/10/2015 Influenza, IIV4 (=>6mos) MDV 12/21/2013 MMR 01/27/2000,04/15/1989 RSV, Bivalent Vaccine Recons tituted (Abrysvo 120MCG/0.5mL) 08/17/2024 Td (Age >=7 Years) 01/27/2000 Td, Preservative Free (age >= 7 Years) 0 Tdap 07/16/2024,05/08/2012 Tuberculin (PPD) 05/05/2012,04/27/2012 Family History Medical History Relation Name Comments No Known Problems Brother Diabetes Father type 2 Hyperlipidemia Father Hypertension Father Brain Aneurysm Maternal Aunt Cancer Maternal Grandmother Crohn's disease Mother Dementia Mother vascular Lupus Mother Nephrolithiasis Mother Cancer-breast Paternal Grandmother Stroke Paternal Uncle Bipolar disorder Sister Diabetes Sister type 2 Relation Name Status Comments Brother Alive Father Alive Maternal Aunt Maternal Grandfather Maternal Grandmother Mother Alive Paternal Grandfather Paternal Grandmother Paternal Uncle Sister Alive Social History Tobacco Use Types Packs/Day Years Used Date Smoking Tobacco: Some Days Cigarettes 0.3 14.3 Started: 2009; Last attempted to quit: 01/25/2024 Smokeless Tobacco: Never Tobacco Cessation:Ready to Q uit: Not Asked; Counseling Given: Not Answered Alcohol Use Standard Drinks/Week Comments Not Currently 0 (1 standard drink = 0.6 oz pur e alcohol) PHQ-2 Answer Date Recorded PHQ-2 TOTAL SCORE 1 08/05/2025 Social Connections Answer Date Recorded Do you often feel lonely or isolated from those around you? 0 02/15/2024 Financial Resource Strain Answer Date R ecorded Difficulty of Paying Living Expenses 3 02/15/2024 Difficulty of Paying Living Expenses Not on file 02/15/2024 Food Insecurity Answer Date Recorded Do you worry your food will run out before you are able to buy more? 1 02/15/2024 Transportation Needs Answer Date Record ed Does lack of transportation keep you from medica l appointments? 1 02/15/2024 Does lack of transportation keep you from work, meetings or getting things that you need? 1 02/15/2024 Housing Stability Answer Date Recorded What is your housing situation today? 1 02/15/2024 Interpersonal Safety Answer Date Record ed Are you being hit, kicked, p ushed or yelled at (see row info)? No 07/23/2024 Interpersonal Safety Abuse 12 - 18 Not on file 07/23/2024 Interpersonal Safety Ambulatory Vulnerability No t on file 07/23/2024 Utilities Answer Date Recorded Do you have trouble paying f or utilities (for example, heat, electricity, water, phone)? 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 on file Not on file Not on file Obstetrics History Para Term AB IAB SAB Ectopic Multiple Livin g Live Births 1 1 1 0 0 0 0 0 0 1 1 Date Outcome GA Total Labor Labor/2nd/3rd Weight Sex Type Anes PTL Cary A1 A5 Name Clin 10/12 Term 40w 4d CS-Un spec Living Caitlin Last Filed Vital Signs Vital Sign Reading Time Taken Comments Blood Pressure 129/74 11/26/2024 10:27 AM ANNUAL GIVING DIRECTOR Pulse 82 11/26/2024 10:27 AM ANNUAL GIVING DIRECTOR Temperature 37.1 C (98.7 F) 05/28/2024 10:33 AM CDT Respiratory Rate 16 02/05/2024 8:27 AM CDT Oxygen Saturation 96% 10/01/2024 8:27 AM ANNUAL GIVING DIRECTOR Inhaled Oxygen Concentration - - Weight 95.7 kg (211 lb) 11/26/2024 10:27 AM ANNUAL GIVING DIRECTOR Height 167.6 cm (5' 6) 07/09/2024 1:02 PM CDT Body Mass Index 34.06 07/09/2024 1:02 PM CDT Plan of Treatment Upcoming Encounters Date Type Department Care Team (Late st Contact Info) Description 10/01/2025 10:30 AM ANNUAL GIVING DIRECTOR Telemedicine [facility] [place] [place] [address] [place], [place] [id number] Asim Frey MD [address] [place] [id number] 12/04/2025 11:00 AM ANNUAL GIVING DIRECTOR Office Visit [facility] [place] [place] [address] [place], [place] [address] Mar Morataya NP [address] [place] [id number] Health Maintenance Due Date Last Done Comments Pneumococcal series for age 6-49 (1 of 2 - PCV) 12/22/2006 HPV series for age 9-45 (3 - 3-dose series) 03/15/2014 12/21/2013, 11/07/2009, 11/07/2009 Influenza Vaccine (#1) 2025 4, 08/04/2021, 10/14/2020, Additional history exists BMI (ht and wt on same day) for age 18+ 07/09/2025 07/09/2024, 02/05/2024, 11/03/2023, Additional history exists Pap test for age 21-65 06/11/2026 , 06/11/2021, 10/07/2009 Depression screening for age 12+ 08/05/2026 08/05/2025, 02/05/2025, 01/15/2025, Additional history exists Tetanus booster 07/16/2034 07/16/2024, 04/17, 01/27/2000, Additional history exists Hepatitis B series for 19+ Completed 03/21, 07/25/2000, 03/18/2000 HIV for age 15-65 Completed 02/15/2024 Hepatitis C screening for ag e 18-79 Completed 02/15/2024 RSV vaccine for adults or Completed 08/17/2024 Procedures Procedure Name Priority Date/Time Associated Diagnosis Comments ANTI HIV 1/2 Routine 02/15/2024 11:48 AM CDT Encounter for supervision of normal first in first trimester (HC) ANTI HCV Routine 02/15/2024 11:48 AM CDT Encounter for supervision of normal first in first trimester (HC) GUN REPAIR CLERK THIN PREP PAP SCREEN IMAGED Routine 06/11/2021 9:59 AM CDT Cervical cancer screening from Last 3 Months or Most Recently Relevant to Health Maintenance Results * ANTI HCV (02/15/2024 11:48 AM CDT) HEPATITIS C ANTIBODY Non-Reacti ve Non-React haroon 02/15/2024 10:09 PM CDT [facility] Comment:Please note, per www .CDC.gov: If a patient is known to be at high risk of HCV infection, or is symptomatic, and the physician's suspicion of HCV infection is high, HCV RNA testing is often employed and is of diagnostic value, even after an initial negative anti-HCV test result. Blood BLOOD SPECIMEN / Unknown Venipuncture / Unknown 02/15/2024 11:48 AM CDT 02/15/2024 11:56 AM CDT Summer Maynard MD SEND OUTS Fi nal Result Performing Organization Address [facility] Co de Phone Number [employer] [facility] [address] [place] [address], [place] * ANTI HIV 1/2 (02/15/2024 11:48 AM CDT) HIV-1/HIV-2 SCREEN Non-Reacti ve Non-Reacti ve 02/15/2024 10:04 PM CDT [employer] [facility] Comment:HIV-1 p24 and HIV-1/ HIV-2 Ab Not Detected. Blood BLOOD SPECIMEN / Unknown Venipuncture / Unknown 02/15/2024 11:48 AM CDT 02/15/2024 11:56 AM CDT Summer Maynard MD SEND OUTS Fi nal Result Performing Organization Address [facility] Co de Phone Number [employer] [facility] [address] [place] [address], [place] * GUN REPAIR CLERK THIN PREP PAP SCREEN IMAGED (06/11/2021 9:59 AM CDT) Case Report Gynecologic Cytology Report Case: [id number] Authorizing Provider: Blanquita Sidhu DO Collected: 06/11/2021 0959 Ordering Location: [facility] Received: 06/11/2021 0959 Clinic First Screen: Fernando Mora Specimen: GUN REPAIR CLERK ThinPrep Vial Screening, Cervical 06/24/2021 8:44 AM CDT [facility] INTERPRETATION/ RESULT NEGATIVE FOR INTRAEPITHELIAL LESION OR MALIGNANCY (NIL) (none) 06/24/2021 8:44 AM CDT [facility] at 0844 CDT SPECIMEN ADEQUACY Satisfactory for evaluation Endocervical component present 06/24/2021 8:44 AM CDT [facility] HPV REQUEST HPV and PAP 06/24/2021 8:44 AM CDT [facility] Date of LMP 05/21/2021 06/24/2021 8:44 AM CDT [facility] Last Pap Date unknown 06/24/2021 8:44 AM CDT [facility] Last Pap Result NIL 8:44 AM CDT [facility] Abnormal Pap or [place] Bx in last 5 years No 06/24/2021 8:44 AM CDT [facility] Menstrual Status Regular Periods 06/24/2021 8:44 AM CDT [facility] [place] Bx Done Today No 06/24/2021 8:44 AM CDT [facility] Additional Information None given 06/24/2021 8:44 AM CDT [facility] Comment: Cytology is screened at [facility] - [address], [place] [address] and [facility] - [address] [place] [address] and [facility] - [address] [place] [address] Interpreted at [facility] - [address], [place] [address] Automated Review Successful 06/24/2021 8:44 AM CDT [facility] Comment:Specimen processed s uccessfully by automated federal mediator device, ThinPrep Imaging System, [employer] ANCILLARY TESTING GUN REPAIR CLERK HPV Ordered, Please see separate report 06/24/2021 8:44 AM CDT [facility] Note The pap test is a screening technique, not a diagnostic procedure. It is used primarily to screen for squamous cancers and precursor lesions. Published studies have shown that it is subject to both false negative and false positive results. The pap test should not be used as the sole means to diagnose or exclude pre-malignant and malignant lesions. 06/24/2021 8:44 AM CDT [employer] [facility] Other (Cervical) Non-Blood / Unknown 06/11/2021 9:59 AM CDT 06/11/2021 9:59 AM CDT us Blanquita Sidhu DO PATHOLOGY/CYTOLOGY Final Re sult [facility] [address] [place] [address], from Last 3 Months or Most Recently Relevant to Health Maintenance Insurance Advance Directives * Full Code (Latest Code Status on File) Date Activated Date Inactivated Comments 11/12/2021 10:26 AM 11/12/2021 6:02 PM Question Answer Comments Code Status Discussion: Other * Full Code Date Activated Date Inactivated Comments 10/14/2020 3:35 PM 11/12/2020 12:08 PM Question Answer Comments Code Status Discussion: Other (specify in commen ts): * Full Code Date Activated Date Inactivated Comments 07/03/2015 7:51 PM 07/10/2015 4:27 PM Question Answer Comments Code Status Discussion: Not Discussed Care Teams Pullman Conductor Relationship Specialty [place] [address] [place] [address] PCP - General Family Practice 07/25/25 Asim Frey MD Psychiatry 01/12/24
== END 2024-10-15 11:30 | disposition home or self-care (01) | DRG 787 ==
LOC: OB OUT 06:45 → OB 06:45
PROVIDERS: Obstetrics & Gynecology; Admitting Provider Family Medicine; PCP Family Medicine; Visit Provider Obstetrics & Gynecology
PROC: 10D00Z1 Extraction of Products of Conception, Low, Open Approach (ICD-10-PCS; CPT 59514; principal; 2024-10-12 22:45)
DX: O48.0 Post-term pregnancy (principal); D62 Acute posthemorrhagic anemia; O72.1 Other immediate postpartum hemorrhage; O99.324 Drug use complicating childbirth; O76 Abnormality in fetal heart rate and rhythm complicating labor and delivery; F11.21 Opioid dependence, in remission; I95.89 Other hypotension; O90.81 Anemia of the puerperium; O77.0 Labor and delivery complicated by meconium in amniotic fluid; O99.344 Other mental disorders complicating childbirth; F32.9 Major depressive disorder, single episode, unspecified; F41.1 Generalized anxiety disorder; G89.18 Other acute postprocedural pain; O34.13 Maternal care for benign tumor of corpus uteri, third trimester; D25.2 Subserosal leiomyoma of uterus; Z86.79 Personal history of other diseases of the circulatory system; Z98.890 Other specified postprocedural states; Z37.0 Single live birth; Z3A.40 40 weeks gestation of pregnancy
CPT/HCPCS: 01967; 01968; 36415; 64488; 76942; 84112; 85018; 85025; 86592; 86850; 86900; 86901; 88307; 99140; G0463; A4314; A9270; C9290; J0456; J0665; J1100; J1885; J2210; J2270; J2371; J2405; J2795; J3010; J7050; J7120

== ENCOUNTER 2024-10-19 13:01 | Outpatient (CLI) | payer OTHER, SELFPAY ==
--- NOTE | 2024-10-19 14:36 | P.LACCB_ITS ---
Consult Note - Mom Date of Visit Date of visit: 10/19/24 Reason for consultation: Assistance Needed (help with latch) and Low Milk Supply (pumping barely 1 oz, baby not satisfied) Visit Code: Visit Patient's Information Phone number: [phone] : 1 Para: 1 Allergies No Known Drug Allergies Allergy (Verified 10/12/24 06:26) Mother's medical history: Difficulty conceiving (tried for 2 years for this baby), Anxiety, Depression, Post hemorrhage (Hgb 9.1) and Other (minimal breast changes during ) Delivery Information Delivery type: Primary C/S; Labored Gestational Age: 40+4 Gestational Weight For Age: AGA Weight: 3.97 kg Discharge Weight: 3.754 kg Percentage weight loss: 5.4 Baby's Information Baby's Age at Visit: 7 days Baby's Provider or Clinic: [facility]; last appt yesterday; weight 8# 2oz Jaundice: No Past Experience Past Experience: No Current Frequency of Day Feedings: every 2-3 hours Frequency of Night Feedings: every 3 hours Both Breasts: Yes Suck: strong Latch: shallow Length of Time: 5-10 minutes, but minima nursing the last 48 hrs Pumping Pumping: Yes Quantity Pumped: just shy of 1 oz Supplementing EBM Supplement: Yes Formula Supplement: Yes Baby Elimination Number of Wet Diapers a Day: ea feeding now with supplementing Number of BM a Day: 6 in last 24 hours, yellow, soft Breast/Nipple Condition Breast Information: Breasts are symmetrical with rounded lower quadrants, intramammary distance is less than 1.5 inches. No erythema. Nipples are supple, everted prior to feeding. Breast Shape: Round and Pliable Engorgement: No Maternal Nipple Condition - Left: Common Nipple and Cracking/ Fissures Maternal Nipple Condition - Right: Common Nipple and Cracking/ Fissures Sore Nipples: Yes Interventions for Sore Nipples: Lansinoh/Nipple Cream Baby Assessment Skin: Normal Tongue/frenulum: Normal/elastic and Restricted-frenulum attaches at tip of tongue, heart shaped Palate: Average Lips: Relaxed and Symmetrical Jaw Alignment: Symmetrical Mucosa: [place], moist Onsite Observation Pre-Feed weight: 3.766 kg Post-Feed weight: 3.778 kg Milk Transferred (mL): 12 (after nursing 10 minutes on left, 10 minutes on right, and 5 more on left) Position: Cross cradle Attachment/latch-on achieved: Easily Suck pattern: Extended suck phase (very few swallows) Swallow: Occasionally Behavior following feed: Alert, content Pre-Nursing Left Nipple: Within Normal Limits Pre-Nursing Right Nipple: Within Normal Limits Post-Nursing Left Nipple: Redness and Creased/Beveled Post-Nursing Right Nipple: Within Normal Limits Assessments/Interventions Assessments/Interventions: Mom at risk for low milk supply given risk factors of difficulty conceiving, minimal breast changes in , and hemorrhage. All this discussed with Sheba and her . They would like to do all possible to help sheba develop a milk supply while supporting baby's weight gain. Education provided: Early feeding cues to maximize timing of latching, Asymmetric latch technique for wide/deep latch to increase milk, Transfer for baby and increase comfort for mom, Supply/demand nature of milk supply, Need for frequent stimulation/milk removal, Sore nipple treatment options, Alternative feeding methods (SNS, cup, finger feeding, bottling) and Pumping for milk management Handouts Provided: Triple Feeding plan Paced bottle feeding How to pump more milk (Spectra) Feeding Plan: Breastfeed for 5-10 on each breast, listening for active swallowing Pump both breasts for: 15 minutes after each feeding; a full 20 minutes if pumping instead of Feed baby 30-60 ml of pumped milk and/or formula every 2-3 hours based on feeding cues Use a syringe/feeding tube, cup, or bottle for feedings based on preference Rest, and repeat every 2-3 hours, watch for early feeding cues Try skin to skin to increase milk hot wound spring production supervisor expression 2-3 times/day may result in more milk than pumping alone. Consider herbal supplements such as Mothers Milk Tea, or More Milk Special Blend Follow-Up Suggested follow up: Appointment in 1 week Time Spent Time spent with patient (min): 90 Meds Home Medications and Allergies Home Medications ?Medication ?Instructions ?Recorded ?Confirmed ?Type buprenorphine 2 mg-naloxone 0.5 mg 1 film buccal DAILY 10/11/24 10/12/24 History sublingual film (Suboxone) escitalopram oxalate 20 mg tablet 20 mg PO DAILY 10/11/24 10/12/24 History (Lexapro) vits no.130-ferrous fum 1 tab PO DAILY 10/11/24 10/12/24 History 27 mg iron-folic acid 800 mcg tablet ( Vitamin) Allergies Allergy/AdvReac Type Severity Reaction Status Date / Time No Known Drug Allergies Allergy Verified 10/12/24 06:26
== END 2024-10-19 13:02 | disposition home or self-care (01) ==
LOC: OB LAC 13:03
PROVIDERS: PCP Family Medicine; Visit Provider Family Medicine
DX: Z39.1 Encounter for care and examination of lactating mother (principal)
CPT/HCPCS: G0463

== ENCOUNTER 2024-10-26 12:52 | Outpatient (CLI) | payer OTHER, SELFPAY ==
--- NOTE | 2024-10-26 14:34 | P.LACF_ITS ---
Follow-Up Note: Mom Date of visit Date of visit: 10/26/24 Reason for consultation: Assistance Needed and Low Milk Supply Visit Code: Visit Patient's Information Allergies No Known Drug Allergies Allergy (Verified 10/12/24 06:26) Delivery Information Delivery type: Primary C/S; Labored Gestational Age: 40+4 Gestational Weight For Age: AGA Weight: 3.97 kg Last Weight: 3.766 kg Baby's Information Baby's name: Caitlin Baby's Age at Visit: 14 days Baby's Provider or Clinic: [facility] Current Frequency of Day Feedings: every 2-3 hours, wakes independently Frequency of Night Feedings: every 3 hours, needs waking for night feedings Both Breasts: Yes Suck: strong Latch: deep Length of Time: 15-18 min total btwn both side Supplementing EBM Supplement: Yes (gets 1-1.5oz every 2.5-3 hours) Formula Supplement: Yes Baby Elimination Number of Wet Diapers a Day: ea feeding Number of BM a Day: ea feeding Breast/Nipple Assessment Breast/Nipple Assessment: Breasts are symmetrical with rounded lower quadrants, intramammary distance is less than 1.5 inches. No erythema. Nipples are supple, everted prior to feeding. Able to easily express drops of milk and baby has milk on her mouth/lips when she unlatches. Breast Shape: Round Engorgement: No Maternal Nipple Condition - Left: Common Nipple Maternal Nipple Condition - Right: Common Nipple Sore Nipples: No Onsite Observation Pre-feed weight: 3.88 kg Post-Feed weight: 3.89 kg Milk Transferred (mL): 10 (nursed 6-7 min ea side) Pre-Nursing Left Nipple: Within Normal Limits Pre-Nursing Right Nipple: Within Normal Limits Post-Nursing Left Nipple: Within Normal Limits Post-Nursing Right Nipple: Within Normal Limits Assessments/Interventions Assessments/Interventions: Given last week and this week's session, baby is not transferring milk well Mom is pumping and now getting closer to 1.5 oz consistently vs the 1oz she was getting last week so her volumes are going up. Discussed option of continuing triple feeding plan, exclusively pumping and bottling, or doing a combination. Parents are getting tired and feeling wore down with this feeding plan which I concur is challenging. After discussing options, mom would like to switch to mainly pumping and bottling to give all EBM available; may continue to put baby to breast 2-3 times/day for stimulation and see if her supply increaes. Discussed pumping routine to include adding in a Power Hour Pump session and revisited her flange size, hers is slightly large so she will look at getting inserts to allow a better fit. reviewed paced bottle feeding for baby and caloric/volume needs as she grows. Education provided: Supply/demand nature of milk supply, Need for frequent s timulation/milk removal, Pumping for milk management and Milk collection, storage Follow-Up Suggested follow up: Appointment as needed Time Spent Time spent with patient (min): 75 (time spent reviewing records and face to face with patient, and baby) Meds Home Medications and Allergies Home Medications ?Medication ?Instructions ?Recorded ?Confirmed ?Type buprenorphine 2 mg-naloxone 0.5 mg 1 film buccal DAILY 10/11/24 10/12/24 History sublingual film (Suboxone) escitalopram oxalate 20 mg tablet 20 mg PO DAILY 10/11/24 10/12/24 History (Lexapro) vits no.130-ferrous fum 1 tab PO DAILY 10/11/24 10/12/24 History 27 mg iron-folic acid 800 mcg tablet ( Vitamin) Allergies Allergy/AdvReac Type Severity Reaction Status Date / Time No Known Drug Allergies Allergy Verified 10/12/24 06:26
== END 2024-10-26 12:53 | disposition home or self-care (01) ==
PROVIDERS: PCP Family Medicine; Visit Provider Obstetrics & Gynecology
DX: Z39.1 Encounter for care and examination of lactating mother (principal)
CPT/HCPCS: G0463